=== PATIENT | female | born 1985 | race Two or more races ===

== ENCOUNTER 2023-02-18 22:14 | Emergency (ER) | payer BC, OTHER ==
[~2023-02-18] VITALS: Ht 152.4 cm; Wt 77.0 kg
[2023-02-19] MEDS ORDERED: DexAMETHasone SOD PHOS 10MG/1ML VIAL INJ IM ONE (02:00)
[2023-02-19] MEDS ORDERED: CEPHALEXIN 250 MG CAP PO ONE (02:00)
[2023-02-19] MEDS ORDERED: HYDROcodone-ACET 10/325MG TAB PO ONE (02:00)
[2023-02-19 03:00] VITALS: BP 132/74; PULSE 78; RESP 18; TEMP 98.2; O2SAT 97
[2023-02-19] MEDS ORDERED: IBUP-1455 PO (03:00)
[2023-02-19] MEDS ORDERED: hydrOXYzine 25 MG TAB or CAP PO ONE (03:00)
[2023-02-19] MEDS ORDERED: HYDR-3682 PO (03:00)
[2023-02-19] MEDS ORDERED: CEPH250C PO (03:00)
== END 2023-02-19 03:25 | disposition home or self-care (01) ==
LOC: ER 22:14
DX: T78.40XA Allergy, unspecified, initial encounter (principal); X58.XXXA Exposure to other specified factors, initial encounter
CPT/HCPCS: 96372; 99284; J1100